=== PATIENT | male | born 1975 | race Caucasian/White ===

== ENCOUNTER 2020-04-21 20:56 | Emergency (ER) | payer OTHER ==
[~2020-04-21 20:56] MED LIST: Iopamidol 370 76% 100 ML VIAL ONE; Succinylcholine Chloride 20 MG/ML 10 ml SYRINGE FS ONE
[2020-04-21] MEDS ORDERED: Ondansetron PF 4 MG/2 ML Vial ONE (21:11)
[2020-04-21 21:15] LABS: Hemoglobin 14.5 g/dL (14.0-18.0); Mean Corpuscular HGB CONC 34.1 g/dL (32.0-36.0); Mean Corpuscular Hemoglobin 34.3 pg (27.0-31.0); Mean Corpuscular Volume 100.5 fL (78.0-98.0); Mean Platelet Volume 9.2 fL (7.4-10.4); Platelet Count 258 thou/uL (130-400); RBC Distribution Width 12.8 % (11.5-14.5); Red Blood Cell (RBC) Count 4.24 mill/uL (4.70-6.10); White Blood Cell (WBC) Count 29.7 thou/uL (4.8-10.8)
[2020-04-21 21:17] LABS: INR-International Normal Ratio 2.3; PTT 28.9 sec (22.9-36.1)
[2020-04-21 21:26] LABS: Band 8 % (5-11); Eosinophils 1 % (0-10); Lymphocytes 14 % (21-51); MDiff Complete? YES; Macrocytosis SLIGHT = 6-15 cells (100X) (0-5/hpf); Monocytes 5 % (0-10); Neutrophil 61 % (42-75); Platelet Morphology Comment Appears Adequate; Reactive Lymphocytes 11 % (0-10); Stomatocytes SLIGHT = 2-5 cells (100X) (0-1/hpf)
[2020-04-21 21:27] LABS: ALT (SGPT) 315 U/L (8-55); AST (SGOT) 614 U/L (5-34); Albumin 3.8 g/dL (3.5-5.0); Alcohol 202 mg/dL (Less than 10); Alkaline Phosphatase 64 U/L (40-110); Anion Gap 18 mmol/L (10-20); BUN (Urea Nitrogen) 9 mg/dL (8.9-20.6); Bilirubin, Total 0.3 mg/dL (0.2-1.2); Calc. Creatinine Clearance 0 mL/min (70-130); Calcium 7.7 mg/dL (7.8-10.44); Carbon Dioxide 21 mmol/L (22-29); Chloride 104 mmol/L (98-107); Estimated GFR-MDRD 69; Globulin 2.3 g/dL (2.4-3.5); Glucose 179 mg/dL (70-105); Protein, Total 6.1 g/dL (6.0-8.3); Sodium 140 mmol/L (136-145)
[2020-04-21 21:31] LABS: Potassium 2.9 mmol/L (3.5-5.1)
[2020-04-21] MEDS ORDERED: Ketamine 50 MG/ML (10ML VIAL) ONE (21:40)
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
[2020-04-21] MEDS ORDERED: Fentanyl 100 MCG/2 ML VIAL ONE ×2 (22:08→22:49)
[2020-04-21] MEDS ORDERED: Midazolam HCl 2 mg/2 ml Vial ONE ×3 (22:14→22:49)
[2020-04-21 22:24] LABS: Bilirubin Negative (Negative); Blood, Urine Large (Negative); Clarity Clear (Clear); Glucose, Urine (Dipstick) Negative (Negative); Ketone, Urine Negative (Negative); Leukocyte Negative (Negative); Nitrite Negative (Negative); Protein, Urine (Dipstick) 100 mg/dL (Neg-Trace); Urobilinogen 0.2 mg/dL (Less than 2); pH, Urine 6.5 (5.0-9.0)
[2020-04-21 22:31] LABS: Bacteria/HPF None Seen HPF (None Seen); Squamous Epithelial None Seen HPF (0-3); WBC/HPF 0-3 HPF (0-3)
[2020-04-21 22:32] LABS: Mucous/LPF Rare LPF (<2+)
[2020-04-21] MEDS ORDERED: Esmolol 2,500 MG/250 ML 0 ML ONE (22:35)
[2020-04-21] MEDS ORDERED: Esmolol 2,500 MG/250 ML 250 ML ONE (22:39)
[2020-04-21] MEDS ORDERED: Rocuronium Bromide 10 MG/ML (10ML VIAL) ONE (22:50)
[2020-04-22] MEDS ORDERED: Sodium Chloride 0.9% 3,000 ML ONE (00:09)
--- NOTE | 2020-04-22 07:04 | RAD ---
SUPINE PORTABLE CHEST: Date: 04/21/2020 INDICATION: ET tube placement. FINDINGS/IMPRESSION: ET tube is in place. Tip is above edith. A NG tube passes through the EG junction and coils within t he stomach. Hazy infiltrate in the right lung consistent with previously noted lung contusion. POS: AGW
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
== END 2020-04-21 23:10 | disposition short-term general hospital (02) ==
LOC: MADERS 20:56
DX: S25.09XA Other specified injury of thoracic aorta, initial encounter (principal); S02.413A LeFort III fracture, initial encounter for closed fracture; S36.892A Contusion of other intra-abdominal organs, initial encounter; S22.029A Unspecified fracture of second thoracic vertebra, initial encounter for closed fracture; S01.21XA Laceration without foreign body of nose, initial encounter; S22.019A Unspecified fracture of first thoracic vertebra, initial encounter for closed fracture; F10.129 Alcohol abuse with intoxication, unspecified; Y90.7 Blood alcohol level of 200-239 mg/100 ml; R06.03 Acute respiratory distress; R09.02 Hypoxemia; I95.9 Hypotension, unspecified; Z79.01 Long term (current) use of anticoagulants; Z86.73 Personal history of transient ischemic attack (TIA), and cerebral infarction without residual deficits; F17.210 Nicotine dependence, cigarettes, uncomplicated; V89.2XXA Person injured in unspecified motor-vehicle accident, traffic, initial encounter
CPT/HCPCS: 31500; 51702; 70450; 70486; 71045; 71260; 72125; 74177; 80053; 80307; 81003; 81015; 83605; 85025; 85610; 85730; 93005; 96361; 96374; 96375; 96376; G0390; J2250; J2405; J3010; J7050; Q9967

== ENCOUNTER 2022-02-02 19:09 | Emergency (ER) | payer OTHER ==
[2022-02-02] MEDS ORDERED: AMOXicillin 250 MG CAP ONE (20:00)
== END 2022-02-02 20:20 | disposition home or self-care (01) ==
LOC: MADERS 19:09
DX: J01.90 Acute sinusitis, unspecified (principal); F17.210 Nicotine dependence, cigarettes, uncomplicated; Z86.73 Personal history of transient ischemic attack (TIA), and cerebral infarction without residual deficits; Z79.01 Long term (current) use of anticoagulants; Z79.899 Other long term (current) drug therapy
CPT/HCPCS: 99283

== ENCOUNTER 2022-03-09 09:18 | Outpatient (CLI) | payer OTHER ==
[2022-03-09 09:40] LABS: PTT 45.3 sec (22.9-36.1); Prothrombin Time 23.4 sec (12.0-14.7)
== END 2022-03-09 09:19 | disposition home or self-care (01) ==
LOC: MADLAB 09:18
PROVIDERS: ATTEND Family Medicine
DX: Z51.81 Encounter for therapeutic drug level monitoring (principal); Z95.2 Presence of prosthetic heart valve; Z79.01 Long term (current) use of anticoagulants
CPT/HCPCS: 36415; 85610; 85730

== ENCOUNTER 2022-05-31 20:22 | Emergency (ER) | payer OTHER ==
[2022-05-31 21:07] LABS: Prothrombin Time 23.2 sec (12.0-14.7)
[2022-05-31 21:11] LABS: ALT (SGPT) 42 U/L (8-55); AST (SGOT) 39 U/L (5-34); Albumin 4.3 g/dL (3.5-5.0); Alkaline Phosphatase 83 U/L (40-110); Anion Gap 18 mmol/L (10-20); BUN (Urea Nitrogen) 9 mg/dL (8.9-20.6); Bilirubin, Total 0.3 mg/dL (0.2-1.2); Calc. Creatinine Clearance 0 mL/min (70-130); Calcium 8.7 mg/dL (7.8-10.44); Carbon Dioxide 18 mmol/L (22-29); Chloride 109 mmol/L (98-107); Estimated GFR 105; Globulin 2.7 g/dL (2.4-3.5); Glucose 130 mg/dL (70-105); Potassium 3.8 mmol/L (3.5-5.1); Sodium 141 mmol/L (136-145)
[2022-05-31 21:12] LABS: Acetaminophen Less than 10.0 mcg/mL (10.0-30.0); Alcohol 268 mg/dL (Less than 10); Salicylate Less than 8.0 mg/dL (15.0-30.0)
[2022-05-31 21:14] LABS: #Basophils 0.1 thou/uL (0.0-0.2); #Eosinphils 0.2 thou/uL (0.0-0.7); #Lymphocytes 4.3 thou/uL (1.20-3.40); #Monocytes 0.7 thou/uL (0.11-0.59); #Neutrophils 8.1 thou/uL (1.40-6.50); %Eosinophils 1.8 % (0.0-10.0); %Lymphocytes 32.1 % (21.0-51.0); %Monocytes 5.3 % (0.0-10.0); %Neutrophils 59.8 % (42.0-75.0); Hemoglobin 17.2 g/dL (14.0-18.0); MDiff Complete? YES; Mean Corpuscular HGB CONC 31.8 g/dL (32.0-36.0); Mean Corpuscular Hemoglobin 32.3 pg (27.0-31.0); Mean Corpuscular Volume 101.3 fL (78.0-98.0); Platelet Clumps MODERATE; Platelet Count 135 thou/uL (130-400); Platelet Morphology Comment PLT clumps seen-ADEQ; RBC Distribution Width 12.6 % (11.5-14.5); RBC Morphology Normal; Red Blood Cell (RBC) Count 5.34 mill/uL (4.70-6.10); White Blood Cell (WBC) Count 13.5 thou/uL (4.8-10.8)
[2022-05-31 22:09] LABS: Amphetamine Not Detected (NotDetected); Barbiturates Screen Not Detected (NotDetected); Benzodiazepine Screen Not Detected (NotDetected); Cocaine Metabolite Screen Not Detected (NotDetected); Medtox Control Line Valid? VALID (VALID); Methadone Not Detected (NotDetected); Methamphetamine Not Detected (NotDetected); Opiate Screen Not Detected (NotDetected); Oxycodone Screen Not Detected (NotDetected); Phencyclidine (PCP) Not Detected (NotDetected); THC/Cannabinoid Screen Not Detected (NotDetected); Tricyclic Screen Not Detected (NotDetected)
[2022-05-31] MEDS ORDERED: Boostrix 0.5 ML (Tdap) VIAL (>/=7 yrs of age) ONE (22:25)
[2022-05-31] MEDS ORDERED: Thiamine HCl 200 MG/2 ML VIAL ONE (22:25)
[2022-05-31] MEDS ORDERED: Lactated Ringer's 1,000 ML ONE (22:25)
[2022-05-31] MEDS ORDERED: Bacitracin 1 PK ONE (23:16)
== END 2022-05-31 23:37 | disposition home or self-care (01) ==
LOC: MADERS 20:22
DX: S60.511A Abrasion of right hand, initial encounter (principal); E86.0 Dehydration; F10.129 Alcohol abuse with intoxication, unspecified; F17.210 Nicotine dependence, cigarettes, uncomplicated; V43.52XA Car driver injured in collision with other type car in traffic accident, initial encounter; Y90.8 Blood alcohol level of 240 mg/100 ml or more; Z23 Encounter for immunization; Z79.01 Long term (current) use of anticoagulants; Z79.899 Other long term (current) drug therapy; Z86.73 Personal history of transient ischemic attack (TIA), and cerebral infarction without residual deficits
CPT/HCPCS: 70450; 71046; 80053; 80306; 80307; 85025; 85610; 90471; 90715; 94760; 96361; 96374; J3411; J7120